=== PATIENT | male | born 1935 | race Caucasian/White ===

== ENCOUNTER 2018-08-02 08:47 | Day surgery (SDC) | payer MEDICARE, BC ==
[2018-08-02] VITALS (11 sets, daily range): BP systolic 131–174; BP diastolic 61–105
[~2018-08-02] VITALS: Ht 170.2 cm; Wt 92.0 kg
[~2018-08-02 08:47] MED LIST: ALLO300T2 PO; AMIO200T40 PO; CARV-50 PO; CLOP75TA35 PO; DIGO125T78 PO; FERR-86 PO; FLO0.4C PO; FURO40TA4 PO; IMD30T PO; LEVO100T46 PO; NAPR220T67 PO; P-EP-35 PO; RABE20TA28 PO; ZOC40T PO
[2018-08-02] MEDS ORDERED: normal saline 1000ml 1,000 ML IV PRN (09:10)
[2018-08-02] MEDS ORDERED: LORA10TA7 PO (09:37)
[2018-08-02] MEDS ORDERED: GABA800T2 PO (09:37)
[2018-08-02] MEDS ORDERED: FURO-150 PO (09:37)
[2018-08-02] MEDS ORDERED: CARV-50 PO (09:37)
[2018-08-02] MEDS ORDERED: CHOL400T57 CORPAK (09:37)
[2018-08-02] MEDS ORDERED: ISOS30TA9 PO (09:37)
[2018-08-02] MEDS ORDERED: midazolam 2 mg/2 ml injection IV PRN (09:45)
[2018-08-02] MEDS ORDERED: fentaNYL/PF 50MCG/1 ML 2ML syringe IV PRN (09:45)
[2018-08-02] MEDS ORDERED: LIDOcaine 1%/PF 5ML 10 MG/ML VIAL SQ ONE (09:45)
[2018-08-02 10:13] LABS: BASOPHILS # (AUTO) 0.1 X10'3 (0-0.2); BASOPHILS % (AUTO) 1.2 % (0-1); EOSINOPHILS # (AUTO) 0.2 X10'3 (0-0.9); EOSINOPHILS % (AUTO) 2.8 % (0-6); HEMATOCRIT 38.8 % (42.0-52.0); HEMOGLOBIN 13.1 g/dl (14.0-17.9); LYMPHOCYTES # (AUTO) 1.9 X10'3 (1.1-4.8); LYMPHOCYTES % (AUTO) 22.5 % (21-51); MEAN CORPUSCULAR HEMOGLOBIN 31.2 PG (27.0-31.0); MEAN CORPUSCULAR HGB CONC 33.8 % (33.0-36.5); MEAN CORPUSCULAR VOLUME 92.3 FL (78-98); MEAN PLATELET VOLUME 7.6 FL (7.4-10.4); MONOCYTES # (AUTO) 0.5 X10'3 (0-0.9); MONOCYTES % (AUTO) 5.3 % (2-12); NEUTROPHILS # (AUTO) 5.8 X10'3 (1.8-7.7); NEUTROPHILS % (AUTO) 68.2 % (42-75); PLATELET COUNT 223 X10'3 (140-440); RED CELL DISTRIBUTION WIDTH 14.9 % (11.5-14.5); WHITE BLOOD COUNT 8.5 X10'3 (4.5-11.0)
[2018-08-02 10:19] LABS: ALBUMIN 3.4 G/DL (3.4-5.0); ANION GAP 8 (8-16); BLOOD UREA NITROGEN 25 MG/DL (7-18); BUN/CREATININE RATIO 18.5 (5.4-32.0); CALCIUM 9.1 MG/DL (8.5-10.1); CHLORIDE 106 MMOL/L (99-107); CREATININE 1.35 MG/DL (0.60-1.10); GLUCOSE 112 MG/DL (70-104); POTASSIUM 4.7 MMOL/L (3.5-5.1); SODIUM 140 MMOL/L (135-145); TOTAL CARBON DIOXIDE 26.3 MMOL/L (24-32); eGFR 50 ML/MIN
[2018-08-02 10:22] LABS: PROTHROMBIN TIME 10.4 SECONDS (9.0-12.0)
[2018-08-02] MEDS ORDERED: midazolam 2 mg/2 ml injection ONE (10:33)
[2018-08-02] MEDS ORDERED: fentaNYL/PF 50MCG/1 ML 2ML syringe ONE (10:33)
[2018-08-02] MEDS ORDERED: sodium chloride 0.45% 1,000 ML IV SCH (11:12)
== END 2018-08-02 13:35 | disposition home or self-care (01) ==
LOC: SSTAY O 08:47
PROVIDERS: ATTEND Radiology Vascular & Interventional Radiology
DX: C34.31 Malignant neoplasm of lower lobe, right bronchus or lung (principal); J44.9 Chronic obstructive pulmonary disease, unspecified; I25.10 Atherosclerotic heart disease of native coronary artery without angina pectoris; I48.91 Unspecified atrial fibrillation; G47.30 Sleep apnea, unspecified; E03.9 Hypothyroidism, unspecified; E78.00 Pure hypercholesterolemia, unspecified; M10.9 Gout, unspecified; I50.9 Heart failure, unspecified; Z87.891 Personal history of nicotine dependence; Z79.899 Other long term (current) drug therapy; Z98.890 Other specified postprocedural states
CPT/HCPCS: 32405; 36415; 71045; 77012; 80048; 85025; 85610; C2613; J2250; J3010; J7030